=== PATIENT | male | born 1955 | race Caucasian/White ===

== ENCOUNTER 2018-09-18 14:21 | Day surgery (SDC) | payer OTHER ==
[~2018-09-18] VITALS: Ht 182.9 cm; Wt 81.2 kg
[2018-09-18] MEDS ORDERED: ASPI81CH PO (15:18)
--- NOTE | 2018-09-18 17:23 | NUR ---
09/18/18 1723 Kasey Keller (Lianna PT VERY ANXIOUS TO LEAVE. PT STS "EAGER TO GO HOME AND EAT SOMETHING." SPOUSE AT BEDSIDE, PT TOLERATING PO INTAKE, FLUIDS & CRACKERS. DISCHARGE EDUCATION PROVIDED, VERBAL & WRITTEN. PT DENIES NEEDS. UPON DISCHARGE, PT REFUSED W/C OR STAND-BY ASSIST. PT REFUSED TO ALLOW SPOUSE TO PULL CAR UP TO SIDE. THIS NURSE ESCORTED PATIENT & SPOUSE OUT ON FOOT. PT PLEASANT BUT DETERMINED TO LEAVE WITHOUT AID. STOIC THROUGHOUT VISIT, BOTH IN PRE-OP & STEP-DOWN.
== END 2018-09-18 17:20 | disposition home or self-care (01) ==
LOC: ORSCSDS 14:21
PROVIDERS: Surgery
PROC: 0HB5XZX Excision of Chest Skin, External Approach, Diagnostic (ICD-10-PCS; principal; 2018-09-18 15:30)
PROC: 0JQ60ZZ Repair Chest Subcutaneous Tissue and Fascia, Open Approach (ICD-10-PCS; principal; 2018-09-18 15:30)
DX: C43.52 Malignant melanoma of skin of breast (principal); Z79.82 Long term (current) use of aspirin
CPT/HCPCS: 88305; J2250; J3010; J7120

== ENCOUNTER → 2021-05-18 | Outpatient (CLI) | payer OTHER ==
[~2021-05-18] MED LIST: ASPI81CH PO
== END | disposition home or self-care (01) ==
LOC: LAB SHORT 07:59
DX: D22.5 Melanocytic nevi of trunk (principal)
CPT/HCPCS: 88305

== ENCOUNTER 2023-06-17 09:08 | Emergency (ER) | payer MEDICARE, BC ==
[~2023-06-17] VITALS: Ht 182.9 cm; Wt 77.1 kg
[2023-06-17 10:02] LABS: BASOPHILS ABSOLUTE AUTO 0.01 K/mm3 (0.00-0.23); BASOPHILS PERCENT AUTO 0 % (0-2); EOSINOPHILS ABSOLUTE AUTO 0.04 K/mm3 (0.00-0.68); EOSINOPHILS PERCENT AUTO 1 % (0-6); Hematocrit 47.8 % (37.0-53.0); Hemoglobin 16.7 g/dL (13.5-17.5); IMMATURE GRAN ABSOLUTE AUTO 0.01 K/mm3 (0.00-0.10); IMMATURE GRAN PERCENT AUTO 0 % (0-1); LYMPHOCYTES ABSOLUTE AUTO 1.64 K/mm3 (0.84-5.20); LYMPHOCYTES PERCENT AUTO 32 % (21-46); MONOCYTES ABSOLUTE AUTO 0.36 K/mm3 (0.16-1.47); MONOCYTES PERCENT AUTO 7 % (4-13); Mean Corpuscular HGB Conc 34.9 g/dL (31.5-36.5); Mean Corpuscular Volume 92 fL (80-100); Mean Platelet Volume 12.2 fL (9.1-12.4); NEUTROPHILS PERCENT AUTO 60 % (41-73); Platelet Count 154 K/mm3 (150-400); RDW Coefficient Variation 11.2 % (11.7-14.2); RDW Standard Deviation 38.2 fL (35.1-46.3); Red Blood Cell Count 5.22 M/mm3 (4.30-5.90); White Blood Cell Count 5.16 K/mm3 (4.00-11.30)
[2023-06-17 10:29] LABS: Magnesium, Blood 2.3 mg/dL (1.6-2.4)
[2023-06-17 10:30] VITALS: BP 112/77
[2023-06-17 10:40] LABS: Thyroid Stimulating Hormone 2.35 uIU/mL (0.360-4.800)
[2023-06-17 10:41] LABS: Albumin, Blood 3.8 g/dL (3.4-5.0); Albumin/Globulin Ratio 1.2 (0.8-1.8); Bilirubin, Total 0.7 mg/dL (0.1-1.0); Bun/Creatinine Ratio 19.4 (12.0-20.0); Calcium, Blood 8.4 mg/dL (8.5-10.1); Creatinine, Blood 0.98 mg/dL (0.60-1.20); Globulin, Blood 3.2 g/dL (2.2-4.0); Potassium, Blood 3.9 mmol/L (3.5-5.5)
== END 2023-06-17 11:44 | disposition home or self-care (01) ==
LOC: ER 09:08
PROVIDERS: Emergency Medicine
DX: R00.2 Palpitations (principal); F41.9 Anxiety disorder, unspecified; I45.2 Bifascicular block; Z79.82 Long term (current) use of aspirin
CPT/HCPCS: 71046; 80053; 83735; 84443; 84484; 85025; 93005; 93010; 99285-25